=== PATIENT | female | born 1955 | race Caucasian/White ===

== ENCOUNTER 2016-11-08 13:39 | Emergency (ER) | payer OTHER ==
--- NOTE | ~2016-11-08 | CR127 ---
[facility]. [facility] A Service of [facility] & [facility] RADIOLOGY TEXT RESULTS PATIENT: PAULINE GARCIA LOCATION: SED : 57 UNIT #: [id number] AGE: [address]: Vickie Carter APRN SEX: F ORDER DR: [id number] [address] [address] [id number] E MR#: [id number] Acc #: [id number] NAME: PAULINE GARCIA : 1955 SEX: F STUDY DATE/TIME: 11/08/2016 12:55 UNIT: SED ROOM: STUDY DESCRIPTION: CR Foot Complete Min 3 View Rt Attending Physician: Vickie Carter A.P.R.N. Ordering Physician: Vickie Carter A.P.R.N. Primary Care Physician: Adrien Olivo M.D. MEDICAL IMAGING REPORT This report is preliminary unless electronic signature is present. EXAM Right foot 3 views, 11/08/2016 HISTORY Foot pain after twisting injury and fall today. FINDINGS 3 views of the right foot demonstrate satisfactory bone alignment. No joint space narrowing or dislocation. Fractures of the medial and lateral malleoli are better demonstrated on the ankle x-ray reported separately. IMPRESSION 1. Satisfactory bone alignment. No foot fracture. 2. Fractures of the medial and lateral malleoli are better demonstrated on the ankle x-ray reported separately. Dictated by... Shalom Whitman M.D. THIS IS AN ELECTRONICALLY VERIFIED REPORT Shalom Whitman M.D. at 11/09/2016 2:13 PM HARRIETT/jessica TD: 11/09/2016 01:39 JOB #: [id number] MEDICAL IMAGING REPORT
--- NOTE | ~2016-11-08 | CR21 ---
[facility]. [facility] A Service of [facility] & [facility] RADIOLOGY TEXT RESULTS PATIENT: PAULINE GARCIA LOCATION: SED : 57 UNIT #: [id number] AGE: [address]: Vickie Carter APRN SEX: F ORDER DR: [id number] [address] [address] [id number] E MR#: [id number] Acc #: [id number] NAME: PAULINE GARCIA : 1955 SEX: F STUDY DATE/TIME: 11/08/2016 12:55 UNIT: SED ROOM: STUDY DESCRIPTION: CR Ankle Min 3 Views Rt Attending Physician: Vickie Carter A.P.R.N. Ordering Physician: Vickie Carter A.P.R.N. Primary Care Physician: Adrien Olivo M.D. MEDICAL IMAGING REPORT This report is preliminary unless electronic signature is present. EXAM Right ankle 3 views, 11/08/2016 HISTORY Ankle pain and swelling after fall today. FINDINGS 3 views of the right ankle demonstrate a nondisplaced longitudinal fracture through the base of the medial malleolus extending into the tibiotalar joint. There is also a nondisplaced transverse fracture through the tip of the lateral malleolus 3 mm proximal to the tip of the lateral malleolus. Mild soft tissue swelling about the ankle, greater over the lateral malleolus. No fracture angulation. No dislocation. Dictated by... Shalom Whitman M.D. THIS IS AN ELECTRONICALLY VERIFIED REPORT Shalom Whitman M.D. at 11/09/2016 2:13 PM HARRIETT/jessica TD: 11/09/2016 01:37 JOB #: [id number] MEDICAL IMAGING REPORT
[~2016-11-08 13:39] MED LIST: ACETAZOLAMIDE250 MG PO; ALPRAZOLAM PO; AMBIEN10 MG PO; BENICAR HCT 40-1 TA1 PO; COLACE PO; CYMBALTA PO; GNP B-COMPLEX1 EACH PO; HIGH POTENCY B1 TAB PO; HIGH POTENCY M1 EAC1 PO; IRON325 ( 652 PO; LORTAB 10-3251 EACH PO; LORTAB 7.5-5001 TAB PO; LORTAB 7.51 TAB PO; MOBIC15 MG PO; MULTI-DAY1 TAB PO; NASONEX17 GM; NORVASC PO; OMEPRAZOLE40 M1 PO; OPTIVAR OPHTHA1 DROP OP; PERCOCET 10/3251 TAB PO; PLAQUENIL200 MG PO; POTASSIUM CHLO10 ME2 PO; PRINIVIL10 MG PO; REMERON30 MG PO; RENATABS WITH I1 TAB PO; SUDAFED PO; WOMEN'S DAILY F1 TAB PO; XANAX0.5 MG PO; ZOLOFT PO; ZYRTEC10 M2 PO
== END 2016-11-08 14:38 | disposition home or self-care (01) ==
LOC: SED 13:39
DX: S82.54XA Nondisplaced fracture of medial malleolus of right tibia, initial encounter for closed fracture (principal); S82.64XA Nondisplaced fracture of lateral malleolus of right fibula, initial encounter for closed fracture; F17.210 Nicotine dependence, cigarettes, uncomplicated; M06.9 Rheumatoid arthritis, unspecified; W17.2XXA Fall into hole, initial encounter; Y92.410 Unspecified street and highway as the place of occurrence of the external cause
CPT/HCPCS: 29515; 29540; 73610; 73630; 99283

== ENCOUNTER 2016-11-25 21:14 | Emergency (ER) | payer OTHER ==
--- NOTE | ~2016-11-25 | CR93 ---
[facility]. [facility] A Service [facility] RADIOLOGY TEXT RESULTS PATIENT: PAULINE GARCIA LOCATION: [facility] : 57 UNIT #: [id number] AGE: [address]: Jose Montenegro MD SEX: F ORDER DR: [id number] [address] [address] [id number] E MR#: [id number] Acc #: [id number] NAME: PAULINE GARCIA : 1955 SEX: F STUDY DATE/TIME: 11/25/2016 21:30 UNIT: SED ROOM: STUDY DESCRIPTION: CR Elbow Min 3 Views Lt Attending Physician: Jose Montenegro M.D. Ordering Physician: Jose Montenegro M.D. Primary Care Physician: Adrien Olivo M.D. MEDICAL IMAGING REPORT This report is preliminary unless electronic signature is present. EXAM Left elbow series, 11/25/2016 HISTORY Fall, pain. FINDINGS AP and lateral views of the left elbow attempted. The study somewhat limited due to difficulty in patient positioning due to patient pain. COMPARISON STUDIES 05/03/2012. FINDINGS The patient is status post prior orthopedic intervention at level of the left elbow. There are orthopedic fixation devices along the olecranon process. These appear grossly unchanged from 2011. There is an acute comminuted intraarticular fracture involving the distal humerus with the dominant transverse fracture plane approximately 1.9 cm from the humeral articular surfaces. There is a dominant fracture plane through the supracondylar region and extending through the lateral epicondyle. I believe there are secondary longitudinally oriented fracture planes involving the mid distal humeral articular surface. The dominant fracture fragments have traveled together and are angled anteriorly, displaced anteriorly by about 4 mm, and displaced in ulnar direction by about 3-4 mm. The radiocapitellar and ulnar/trochlear joint relationships remain grossly normally aligned. There is no soft tissue defect or subcutaneous air. [facility] A Service [facility] RADIOLOGY TEXT RESULTS PATIENT: PAULINE GARCIA LOCATION: [facility] : 57 UNIT #: [id number] AGE: [address]: Jose Montenegro MD SEX: F ORDER DR: Dictated by... Rocco Colon M.D. THIS IS AN ELECTRONICALLY VERIFIED REPORT Rocco Colon M.D. at 11/27/2016 8:06 PM Coty TD: 11/26/2016 06:17 JOB #: [id number] MEDICAL IMAGING REPORT Page 1 of 1
--- NOTE | ~2016-11-25 | CR210 ---
[facility]. [facility] A Service of [facility] & [facility] RADIOLOGY TEXT RESULTS PATIENT: PAULINE GARCIA LOCATION: SED : 57 UNIT #: [id number] AGE: [address]: Jose Montenegro MD SEX: F ORDER DR: [id number] [address] [address] [id number] E MR#: [id number] Acc #: [id number] NAME: PAULINE GARCIA : 1955 SEX: F STUDY DATE/TIME: 11/25/2016 21:30 UNIT: SED ROOM: STUDY DESCRIPTION: CR Ribs Uni 2 View W PA Ch Lt Attending Physician: Jose Montenegro M.D. Ordering Physician: Jose Montenegro M.D. Primary Care Physician: Adrien Olivo M.D. MEDICAL IMAGING REPORT This report is preliminary unless electronic signature is present. EXAM Chest with left rib series 11/25/2016 HISTORY Fall down steps prior to arrival. Pain. FINDINGS AP radiograph of the chest is presented with AP and oblique radiographs of the left ribs. Cervical spine fixation hardware appears intact in visualized extent. Bony structures of the spine show multilevel degenerative change without clear indication of acute traumatic spinal abnormality. Similar appearance on prior plain radiographs dated 02/09/2012. There are multiple left rib fractures. Minimally-displaced complete fractures of the lateral left fourth, fifth and sixth ribs. Nondisplaced complete fracture of the lateral left seventh rib. Nondisplaced complete oblique fracture lateral/anterolateral left eighth rib. The overlying body wall soft tissues show no soft tissue defect or subcutaneous air. The right ribs appear intact in visualized extent. Heart normal in size. Mildly tortuous descending thoracic aorta. The lungs are well inflated without evidence of acute pulmonary disease. No pleural effusion or pneumothorax. No suspicious nodule. Densely calcified granuloma right lung base. The visualized bowel gas pattern is normal. Partially visualized comminuted intraarticular fracture of the distal left humerus. Please see left elbow series for further assessment. Dictated by... Rocco Colon M.D. THIS IS AN ELECTRONICALLY VERIFIED REPORT Rocco Colon M.D. at 11/27/2016 8:06 PM [facility] A Service of [facility] & [facility] RADIOLOGY TEXT RESULTS PATIENT: PAULINE GARCIA [place] [facility] [place] 57 UNIT #: [id number] AGE: [address]: Jose Montenegro MD SEX: F ORDER DR: TD: 11/26/2016 06:16 JOB #: [id number] MEDICAL IMAGING REPORT Page 1 of 1
== END 2016-11-26 00:28 | disposition hospice, home (50) ==
LOC: SED 21:14
DX: S22.42XA Multiple fractures of ribs, left side, initial encounter for closed fracture (principal); S42.402A Unspecified fracture of lower end of left humerus, initial encounter for closed fracture; K21.9 Gastro-esophageal reflux disease without esophagitis; F17.200 Nicotine dependence, unspecified, uncomplicated; Z23 Encounter for immunization; Z79.899 Other long term (current) drug therapy; Z88.1 Allergy status to other antibiotic agents; W01.0XXA Fall on same level from slipping, tripping and stumbling without subsequent striking against object, initial encounter; Y92.009 Unspecified place in unspecified non-institutional (private) residence as the place of occurrence of the external cause
CPT/HCPCS: 71100; 73080; 90471; 90715; 99285; J1170

== ENCOUNTER → 2017-01-26 | Outpatient (CLI) | payer OTHER ==
--- NOTE | ~2017-01-26 | MR32 ---
[facility] A Service of [facility] & [facility] RADIOLOGY TEXT RESULTS PATIENT: PAULINE GARCIA LOCATION: [facility] : 57 UNIT #: [id number] AGE: [address]: Adarsh Rojas II, MD SEX: F ORDER DR: [id number] [address] [address] [id number] O MR#: [id number] Acc #: [id number] NAME: PAULINE GARCIA : 1955 SEX: F STUDY DATE/TIME: 01/26/2017 14:56 UNIT: [facility] ROOM: STUDY DESCRIPTION: MR Cervical Wo Contrast Attending Physician: Adarsh Rojas II., M.D. Referring Physician: Adarsh Rojas II., M.D. Ordering Physician: Adarsh Rojas II., M.D. Primary Care Physician: Adrien Olivo M.D. MRI CENTER REPORT This report is preliminary unless electronic signature is present. EXAM Cervical spine MRI without. HISTORY Degenerative cervical spinal stenosis. Prior cervical spine fusion, anterior cervical fusion 2005. Patient complains of neck pain for 2 years with right upper extremity numbness and right lower extremity pain. History of a basal cell carcinoma. TECHNIQUE MRI of the cervical spine was performed without contrast using 1.5T wide-bore imaging technique. There is a cervical CT myelogram for comparison from 10/29/2015. Metal artifact is present from the anterior hardware. The hardware is better seen on the CT scan and there is evidence of fusion from C3-C7 with anterior plate and screws as well as an intervertebral disc spacer at C5-6. There is bony fusion across the 6-7, 4-5, and 3-4 disc spaces. There is probably not significant bony fusion across the 5-6 spacer. 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 There is anterolisthesis of C7 on T1 due to facet arthritis measuring about 5 mm. This is also present on the CT scan. More subtle degenerative anterolisthesis of C2 on C3, unchanged about 2-3 mm. The cervical cord is normal in size and there is no Chiari-I malformation. Allowing for the artifact associated with the metal, there is probably a small focus of cord signal abnormality within the left hemicord at the level of the C4-5 disc. It is a few millimeter in diameter axial plane and about 5 mm in length. I suspect it is related to prior compressive myelopathic change in light of findings together. At C2-3, there is facet degenerative change which accounts for anterolisthesis of 2 on 3. There is mild cord flattening and canal stenosis. No significant foraminal impingement. [facility] A Service of [facility] RADIOLOGY TEXT RESULTS PATIENT: PAULINE GARCIA LOCATION: [facility] : 57 UNIT #: [id number] AGE: [address]: Adarsh Rojas II, MD SEX: F ORDER DR: At C3-4, prior fusion. No residual or recurrent canal stenosis or foraminal compromise. Only mild flattening of the anterior cord. At C4-5, prior fusion. No residual or recurrent canal stenosis. There may be some mild foraminal narrowing. At C5-6, prior fusion. No residual or recurrent canal stenosis. Probably mild foraminal narrowing on the left. At C6-7, prior fusion. No residual or recurrent canal stenosis. Probably mild left foraminal narrowing. At C7-T1, there is facet arthritis which accounts for the anterolisthesis of 7 on 1 and it is severe. There is mild cord flattening and canal stenosis and I believe there is severe foraminal compromise bilaterally. No recurrent disc extrusion is suspected at postoperative levels. There is some posterior desiccated disc material at the 7-1 level and mild posterior desiccated disc material at the 2-3 level. On comparison to the previous CT scan, the degree of canal stenosis at C7-T1 is probably not changed. Degree of canal stenosis at C2-3 is probably slightly progressed. IMPRESSION 1. Extensive postoperative changes prior fusion C3-C7. There is no evidence for recurrent extrusion or canal stenosis at postoperative levels. There is, however, anterolisthesis of C7 on T1, to a lesser extent C2 on C3 secondary to facet arthritis. At the 7-1 level, this results in mild cord flattening and canal stenosis and probably severe foraminal impingement. Milder stenosis at the 2-3 level mildly progressed from the prior CT myelogram of 2016. 2. Small focus of probably chronic signal abnormality in the left hemicord at the level of C4-5 related to prior stenosis. 3. There is not likely to be significant bony fusion across the C5-6 intervertebral disc level, though there does appear to be bony fusion at C3-4, C4-5, and C6-7 levels. Dictated by... Smiley Donald M.D. THIS IS AN ELECTRONICALLY VERIFIED REPORT Smiley Donald M.D. at 01/27/2017 4:46 PM CAM/melissa TD: 01/27/2017 14:57 [facility]. [facility] A Service of [facility] & [facility] / [facility] RADIOLOGY TEXT RESULTS PATIENT: PAULINE GARCIA LOCATION: [facility] : 57 UNIT #: [id number] AGE: [address]: Adarsh Rojas II, MD SEX: F ORDER DR: TIM #: [id number] MRI CENTER REPORT Page 1 of 1
== END | disposition home or self-care (01) ==
LOC: SMRI 01-22 14:30
DX: M48.02 Spinal stenosis, cervical region (principal)
CPT/HCPCS: 72141

== ENCOUNTER → 2017-03-05 | Outpatient (CLI) | payer OTHER ==
--- NOTE | ~2017-03-05 | CT127 ---
[facility] A Service of [facility] & [facility] RADIOLOGY TEXT RESULTS PATIENT: PAULINE GARCIA LOCATION: [facility] : 57 UNIT #: [id number] AGE: [address]: Chevy Cuello MD SEX: F ORDER DR: [id number] [address] [address] [id number] O MR#: [id number] Acc #: [id number] NAME: PAULINE GARCIA : 1955 SEX: F STUDY DATE/TIME: 03/05/2017 13:09 UNIT: [facility] ROOM: STUDY DESCRIPTION: CT Upper Ext Lt Wo Cont Attending Physician: Chevy Cuello M.D. Referring Physician: Chevy Cuello M.D. Ordering Physician: Chevy Cuello M.D. Primary Care Physician: Adrien Olivo M.D. MEDICAL IMAGING REPORT This report is preliminary unless electronic signature is present. EXAM CT left elbow HISTORY Fell down steps at home 25 November, surgery 26 November with plate and screws. States fracture not healing correctly. Persistent pain. COMPARISON Left elbow films 02/02/2017 TECHNIQUE Thin section axial images were performed through the left elbow with multiplanar reconstructed images reviewed at a workstation. This CT exam was performed with one or more of the following radiation dose reduction techniques: automatic exposure control, adjustment of mA and/or kV according to patient size, and iterative reconstruction. 3-D volume-rendered reconstructed images were also obtained and reviewed at a workstation. FINDINGS Patient is status post ORIF of a comminuted distal humeral fracture with medial and lateral fixation plates and multiple screws. Fixation plate extends along the posterior aspect of the distal humerus and extends laterally and posterior to the lateral humeral condyle. There is also a medial fixation plate. Anchors are also noted within the proximal ulna which may be related to repair of the triceps. There is a sizeable fracture along the anterior aspect of the lateral elbow measuring up to 1.9 cm, which appears to represent a displaced capitellar fragment. This shows minimal articulation with the radial head and no significant remaining humeral capitellar articulating surface is identified. Multiple distal fragments are noted about the anterior aspect of the elbow joint adjacent to the radial head. The radial head appears intact and normally located. Some of the density about the radial head represents heterotopic STS. [facility] A Service of [facility] & [facility] RADIOLOGY TEXT RESULTS PATIENT: PAULINE GARCIA LOCATION: [facility] : 57 UNIT #: [id number] AGE: [address]: Chevy Cuello MD SEX: F ORDER DR: ossification and this is demonstrated beyond the elbow joint. Multiple defects are noted within the remaining distal humerus which is compatible with incomplete union of a comminuted distal humeral fracture. There are several distal humeral screws which do not engage the fixation plates and presumably represent inter fragmentary screws. One of the screws demonstrates only minimal engagement of the distal humerus. There is extensive soft tissue swelling edema about the elbow joint and probable elbow effusion. Biceps and brachialis tendon insertions appear normal. The inferior most fixation screw of the posterior lateral fixation plate abuts the radial head articular surface. IMPRESSION 1. Status post ORIF of a comminuted distal humeral fracture with posterior lateral and medial fixation plates as well as multiple inter fragmentary screws. The fracture remains clearly visible and overall is estimated less than 25% healed. 2. Large displaced fragment along the anterior lateral aspect of the elbow joint which appears to represent a large capitellar fragment and there is no normal articulation or minimal articulation of the radial head with the expected humeral articular surface. The inferior-most fixation screw of the posterior lateral plate does contact the radial head articular surface. 3. Heterotopic ossification about the radial head and radial neck as well as soft tissue swelling edema and joint effusion. 1. 1. Dictated by... Ant Krishna M.D. THIS IS AN ELECTRONICALLY VERIFIED REPORT Ant Krishna M.D. at 03/08/2017 5:16 PM REJI/mihir TD: 03/08/2017 16:19 JOB #: [id number] MEDICAL IMAGING REPORT Page 1 of 1
== END | disposition home or self-care (01) ==
LOC: SCT 12:56
DX: S42.402D Unspecified fracture of lower end of left humerus, subsequent encounter for fracture with routine healing (principal); M79.89 Other specified soft tissue disorders; M25.422 Effusion, left elbow
CPT/HCPCS: 73200; 76376